=== PATIENT | female | born 1980 | race Caucasian/White ===

== ENCOUNTER 2016-12-28 17:57 | Emergency (ER) | payer BC, OTHER ==
[~2016-12-28] VITALS: Ht 162.6 cm; Wt 69.8 kg
[~2016-12-28 17:57] MED LIST: BSP5 PO; FLUO20CA35 PO; REVEIWED
[2016-12-28 18:03] VITALS: TEMP 36.9
[2016-12-28] MEDS ORDERED: ALPR1TAB3 PO (18:19)
[2016-12-28] MEDS ORDERED: CITA40TA12 PO (18:19)
[2016-12-28] MEDS ORDERED: TOPI25TA99 PO (18:19)
[2016-12-28] MEDS ORDERED: SODIUM CHLORIDE 0.9% 1000ML 1,000 ML IV STA (18:24)
[2016-12-28] MEDS ORDERED: ONDANSETRON INJ 2 MG/ML 2 ML VIAL IV STA (18:24)
[2016-12-28] MEDS ORDERED: OPTIRAY 320 IV PRN (18:30)
--- NOTE | 2016-12-28 18:34 | EMERGENCY ROOM VISIT NOTE ---
History Report prepared by Jeyson: Alejandro Saleem Under the Supervision of: Dr. Samm Zuniga D.O. First contact with patient: 18:15 Chief Complaint: WEAKNESS Stated Complaint: LOSS OF FEELING IN FACE AND ARM History of Present Illness The patient is a 36 year old female who presents to the Emergency Room with complaints of a resolved headache that occurred two days ago. She reports that her headache was in her forehead and eyes. The patient states that she woke up with her headache yesterday and her headache was persistent. She states that around 1030, she was sitting at her computer and felt "out of it". The patient reports that her right face became numb and her right arm felt weak. The patient reports that following these sensations, her headache disappeared. She admits that she has had headaches in the past but not to this extent. The patient also admits that her right eye feels heavy and she saw "black swirlies" today. She states that she saw Dr. Tierney at [facility] today and her blood pressure was 138 systolically. The patient states that she is worried because her blood pressure is normally 111 systolically, and her father has a history of hypertension and a stroke. She admits to a history of anxiety, which she takes Celexa for, and herniated degenerative discs, which causes her to have chronic lower back pain and left leg weakness. The patient reports that she smokes a pack a day and drinks two glasses a week. She denies any history of diabetes and a family history of any brain aneurysms. The patient denies neck pain, fevers, and weakness in legs. Source of History: patient Onset: two days ago Position: head, eye (right) Quality: ache Timing: resolved Associated Symptoms: + weakness, + numbness, No fevers, No neck pain Review of Systems See HPI for pertinent positives & negatives. A total of 10 systems reviewed and were otherwise negative. Past Medical & Surgical Medical Problems: (1) Anxiety (2) Herniated disc (3) OCD (obsessive compulsive disorder) Family History Cancer Diabetes mellitus Hypertension Kidney disease Kidney stones Social History Smoking Status: Current Every Day Smoker Alcohol Use: occasionally Marital Status: Housing Status: lives with family Occupation Status: employed Current/Historical Medications Scheduled Alprazolam (Xanax), 1 MG PO BID Citalopram Hydrobromide (Celexa), 40 MG PO QPM Topiramate (Topamax ), 75 MG PO DAILY Allergies Coded Allergies: Bupropion (Unverified Allergy, Intermediate, HIVES, 12/28/16) Physical Exam Vital Signs Date Time Temp Pulse Resp B/P (MAP) Pulse Ox O2 Delivery O2 Flow Rate FiO2 12/28/16 21:52 88 16 114/76 98 12/28/16 20:00 88 16 134/78 98 Room Air 12/28/16 19:00 98 Room Air 12/28/16 19:00 98 Room Air 12/28/16 18:03 36.9 99 20 145/102 98 Room Air Physical Exam GENERAL: Patient is awake, alert, and in no acute distress. Patient is resting comfortably and showing no signs of anxiety EYES: Mild ptosis of right eye. The pupils are equal, round, and reactive to light. Extra ocular motors are intact. EARS, NOSE, MOUTH AND THROAT: The nose is without any evidence of any deformity. Mucous membranes are moist tongue is midline NECK: The neck is nontender and supple. RESPIRATORY: Normal respiratory effort is noted there is no evidence of wheezing rhonchi or rales CARDIOVASCULAR: Regular rate and rhythm noted there no murmurs rubs or gallops normal S1 normal S2 GASTROINTESTINAL: The abdomen is soft. Bowel sounds are present in all quadrants. Abdomen is nontender MUSCULOSKELETAL/EXTREMITIES: There is no evidence of gross deformity full range of motion is noted in the hips and shoulders SKIN: There is no obvious evidence of any rash. There are no petechiae, pallor or cyanosis noted. NEUROLOGIC: Patient is awake alert and oriented x3 strength is symmetric patellar reflexes are 2+ bilaterally. Slight asymmetry with jalousies installer strength of upper extremities with left greater than right. Medical Decision & Procedures ER Provider Diagnostic Interpretation: Radiology results as stated below per my review and radiologist interpretation: ANGIOGRAPHY HEAD COMBO CLINICAL HISTORY: Right facial and right upper extremity loss of feeling. COMPARISON STUDY: No previous studies for comparison. TECHNIQUE: Unenhanced and arterial phase imaging of the head was performed. Injection of 94 cc of Optiray 320 IV was uneventful. Sagittal and coronal reconstructions were viewed as well as maximal intensity projections on an independent 3-D workstation. FINDINGS: No acute intracranial hemorrhage, midline shift or mass effect is present. Slight asymmetry in the lateral ventricles represents physiologic variation. The basilar cisterns are patent. There are no extra-axial collections. Estrada-white differentiation is maintained. There are no findings to suggest acute dural sinus thrombosis or acute territorial infarct. There are no significant calvarial abnormalities. Visualized portions of the sinuses and mastoid air cells are clear. The bilateral M1, M2, A1 and A2 segments are patent. The left vertebral artery is diminutive, likely on a congenital basis. There is persistence of the right posterior cerebral artery. No intracranial aneurysm or abrupt vessel cut off is identified. There is no significant stenosis within the major intracranial vessels. IMPRESSION: 1. No acute intracranial findings. 2. Unremarkable CTA of the head. Electronically signed by: Moisés Ochoa M.D. 12/28/2016 7:41 PM Dictated Date/Time: 12/28/2016 7:34 PM CHEST ONE VIEW PORTABLE CLINICAL HISTORY: Altered mental status. Weakness. COMPARISON STUDY: No previous studies for comparison. FINDINGS: Lung volumes are normal. No consolidation is identified. There is no pneumothorax or pleural effusion. Pulmonary vascularity is normal. Apparent hazy bibasilar opacities are likely artifactual. IMPRESSION: No acute cardiopulmonary findings. Electronically signed by: Moisés Ochoa M.D. 12/28/2016 6:43 PM Dictated Date/Time: 12/28/2016 6:42 PM MRI OF THE BRAIN WITHOUT CONTRAST CLINICAL HISTORY: Right facial numbness and right upper extremity weakness. COMPARISON STUDY: None. TECHNIQUE: Utilizing a 1.5 Shawanda magnet and dedicated coil, multiplanar, multiecho imaging of the brain was performed without IV contrast. FINDINGS: There are no areas of restricted diffusion. No acute intracranial hemorrhage, midline shift or mass effect is present. Ventricular system is unremarkable. Basilar cisterns are patent. There are no extra-axial collections. Flow-voids for the major intracranial vessels are present. There is no intracranial mass on this unenhanced exam. No areas of parenchymal signal abnormality are present. Calvarial signal is maintained. Orbits and sinuses are unremarkable. IMPRESSION: Unremarkable unenhanced MRI of the brain. Electronically signed by: Moisés Ochoa M.D. 12/28/2016 9:16 PM Dictated Date/Time: 12/28/2016 9:12 PM Laboratory Results 12/28/16 18:45 Red Blood Count 4.60, Mean Corpuscular Volume 89.8, Mean Corpuscular Hemoglobin 33.3, Mean Corpuscular Hemoglobin Concent 37.0, Mean Platelet Volume 9.6, Neutrophils (%) (Auto) 41.1, Lymphocytes (%) (Auto) 47.5, Monocytes (%) (Auto) 9.5, Eosinophils (%) (Auto) 1.3, Basophils (%) (Auto) 0.4, Neutrophils # (Auto) 1.85, Lymphocytes # (Auto) 2.14, Monocytes # (Auto) 0.43, Eosinophils # (Auto) 0.06, Basophils # (Auto) 0.02 12/28/16 18:45 Test 12/28/16 18:45 12/28/16 18:54 12/28/16 18:57 White Blood Count 4.51 K/uL (4.8-10.8) Red Blood Count 4.60 M/uL (4.2-5.4) Hemoglobin 15.3 g/dL (12.0-16.0) Hematocrit 41.3 % (37-47) Mean Corpuscular Volume 89.8 fL (80-100) Mean Corpuscular Hemoglobin 33.3 pg (25-34) Mean Corpuscular Hemoglobin Concent 37.0 g/dl (32-36) Platelet Count 203 K/uL (130-400) Mean Platelet Volume 9.6 fL (7.4-10.4) Neutrophils (%) (Auto) 41.1 % Lymphocytes (%) (Auto) 47.5 % Monocytes (%) (Auto) 9.5 % Eosinophils (%) (Auto) 1.3 % Basophils (%) (Auto) 0.4 % Neutrophils # (Auto) 1.85 K/uL (1.4-6.5) Lymphocytes # (Auto) 2.14 K/uL (1.2-3.4) Monocytes # (Auto) 0.43 K/uL (0.11-0.59) Eosinophils # (Auto) 0.06 K/uL (0-0.5) Basophils # (Auto) 0.02 K/uL (0-0.2) RDW Standard Deviation 42.6 fL (36.4-46.3) RDW Coefficient of Variation 13.1 % (11.5-14.5) Immature Granulocyte % (Auto) 0.2 % Immature Granulocyte # (Auto) 0.01 K/uL (0.00-0.02) Prothrombin Time 10.5 SECONDS (9.0-12.0) Prothromb Time International Ratio 1.0 (0.9-1.1) Activated Partial Thromboplast Time 26.8 SECONDS (21.0-31.0) Partial Thromboplastin Ratio 1.0 Est Creatinine Clear Calc Drug Dose 81.1 ml/min Estimated GFR () 92.8 Estimated GFR (Non- 80.1 BUN/Creatinine Ratio 13.2 (10-20) Calcium Level 9.1 mg/dl (8.5-10.1) Magnesium Level 2.2 mg/dl (1.8-2.4) Total Bilirubin 0.4 mg/dl (0.2-1) Direct Bilirubin < 0.1 mg/dl (0-0.2) Aspartate Amino Transf (AST/SGOT) 15 U/L (15-37) Alanine Aminotransferase (ALT/SGPT) 15 U/L (12-78) Alkaline Phosphatase 78 U/L (45-117) Troponin I < 0.015 ng/ml (0-0.045) Total Protein 8.4 gm/dl (6.4-8.2) Albumin 4.4 gm/dl (3.4-5.0) Thyroid Stimulating Hormone (TSH) 3.110 uIu/ml (0.300-4.500) Human Chorionic Gonadotropin, Qual NEG (NEG) Bedside Hemoglobin 15.3 g/dl (12.0-16.0) Bedside Hematocrit 45 % (37-47) Bedside Sodium 141 mEq/L (135-144) Bedside Potassium 3.4 mEq/L (3.3-5.0) Bedside Chloride 105 mEq/L (101-112) Bedside Total CO2 22 mEq/l (24-31) Anion Gap 18.0 mmol/L (16-25) Bedside Blood Urea Nitrogen 12 mg/dl (7-18) Bedside Creatinine 0.9 mg/dl (0.6-1.3) Bedside Glucose (other) 95 mg/dl (70-99) Bedside Ionized Calcium (Femi) 1.21 mmol/l (1.12-1.32) Urine Color YELLOW Urine Appearance CLEAR (CLEAR) Urine pH 6.0 (4.5-7.5) Urine Specific [place] 1.011 (1.000-1.030) Urine Protein NEG (NEG) Urine Glucose (UA) NEG (NEG) Urine Ketones NEG (NEG) Urine Occult Blood 3+ (NEG) Urine Nitrite NEG (NEG) Urine Bilirubin NEG (NEG) Urine Urobilinogen NEG (NEG) Urine Leukocyte Esterase NEG (NEG) Urine WBC (Auto) 1-5 /hpf (0-5) Urine RBC (Auto) >30 /hpf (0-4) Urine Hyaline Casts (Auto) 1-5 /lpf (0-5) Urine Epithelial Cells (Auto) 5-10 /lpf (0-5) Urine Bacteria (Auto) NEG (NEG) Laboratory results per my review. Medications Administered Medications (Trade) Dose Ordered Sig/Donnell Route Start Time Stop Time Status Last Admin Dose Admin Ondansetron HCl (Zofran Inj) 4 mg NOW STAT IV 12/28/16 18:24 12/28/16 18:26 DC 12/28/16 18:24 4 MG Sodium Chloride 1,000 ml @ 999 mls/hr Q1H1M STAT IV 12/28/16 18:24 12/28/16 19:24 DC 12/28/16 18:24 999 MLS/HR ECG Indication: weakness Rate (beats per minute): 68 Rhythm: normal sinus Findings: no ectopy, other (No acute ST segments) Comparison ECG Date: no prior available ED Course 1817: The patient was evaluated in room B11A. A complete history and physical examination were performed. 1823: Ordered Sodium Chloride 1000 ml @ 999 mls/hr IV, Zofran Injection 4 mg IV. 2008: I discussed the patient's case with Dr. Reed, [facility]. 2129: Upon reevaluation, the patient is resting comfortably. I discussed the results and treatment plan with her. The patient verbalized agreement of the treatment plan. She was discharged home. Medical Decision Prior records/ancillary studies reviewed and summarized above. Nursing notes reviewed. Additional history obtained from the patient. Differential diagnosis: Etiologies such as metabolic, infection, hypo/hyperglycemia, electrolyte abnormalities, cardiac sources, intracerebral event, toxicologic, neurologic, as well as others were entertained. The patient is a 36-year-old female who presented to the emergency department for an evaluation of right facial numbness urinalysis to the right eye as well as right upper extremity symptoms. The patient did not have any focal neurologic deficit in the lower extremities. Her jalousies installer was mildly asymmetric to my exam. I discussed the patient's laboratory radiographic studies with her. She does have a family history of intracranial aneurysms a CT angiography was obtained. The patient's case was discussed with the on-call neurologist. He recommended an MRI while the patient was in the emergency department. This did not show any acute abnormality. The patient was encouraged to follow-up with the primary care physician as well as the neurologist as soon as possible. She did have a slight headache on the onset of the symptoms and it is possible this represents some sort of atypical migraine but I did caution her to return to the emergency department immediately if symptoms change worsen or if the need arises. Medication Reconcilliation Current Medication List: was personally reviewed by me Blood Pressure Screening Patient's blood pressure: Elevated blood pressure Blood pressure disposition: Elevated BP felt to be situational Consults Time Called: 2008 Consulting Physician: [facility] Returned Call: 2008 I discussed the patient's case with [facility]. Impression Primary Impression: Headache Additional Impression: Right facial numbness Scribe Attestation The scribe's documentation has been prepared under my direction and personally reviewed by me in its entirety. I confirm that the note above accurately reflects all work, treatment, procedures, and medical decision making performed by me. Departure Information Dispostion Home / Self-Care Referrals Neil Sutton M.D. (PCP) Forms HOME CARE DOCUMENTATION FORM, IMPORTANT VISIT INFORMATION Patient Instructions Headache Pain, My [facility] Additional Instructions Rest and avoid any strenuous activity. Continue all medications as prescribed. Return to the emergency department immediately symptoms change worsen or need arises. Follow-up with your family doctor soon as possible for further evaluation. Problem Qualifiers
--- NOTE | 2016-12-28 18:45 | DIAGNOSTIC IMAGING REPORT ---
CHEST ONE VIEW PORTABLE CLINICAL HISTORY: Altered mental status. Weakness. COMPARISON STUDY: No previous studies for comparison. FINDINGS: Lung volumes are normal. No consolidation is identified. There is no pneumothorax or pleural effusion. Pulmonary vascularity is normal. Apparent hazy bibasilar opacities are likely artifactual. IMPRESSION: No acute cardiopulmonary findings. Electronically signed by: Moisés Ochoa M.D. 12/28/2016 6:43 PM Dictated Date/Time: 12/28/2016 6:42 PM
[2016-12-28 18:58] LABS: BASO % 0.4 %; BASO ABS # 0.02 K/uL (0-0.2); COMPLETE YES; EOS % 1.3 %; HEMATOCRIT 41.3 % (37-47); IG% 0.2 %; LYMPH % 47.5 %; LYMPH ABS # 2.14 K/uL (1.2-3.4); MEAN CELL VOLUME 89.8 fL (80-100); MEAN CORPUSCULAR HEMOGLOBIN 33.3 pg (25-34); MEAN PLATELET VOLUME 9.6 fL (7.4-10.4); MONO % 9.5 %; NEUT % 41.1 %; PLATELET COUNT 203 K/uL (130-400); WHITE BLOOD COUNT 4.51 K/uL (4.8-10.8)
[2016-12-28 19:00] VITALS: O2SAT 98; Ht 162.6 cm; Wt 69.8 kg
[2016-12-28 19:07] LABS: ISTAT CREATININE 0.9 mg/dl (0.6-1.3); ISTAT HEMOGLOBIN 15.3 g/dl (12.0-16.0); ISTAT IONIZED CALCIUM 1.21 mmol/l (1.12-1.32)
[2016-12-28 19:08] LABS: PROTHROMBIN TIME (PATIENT) 10.5 SECONDS (9.0-12.0)
[2016-12-28 19:17] LABS: ALT/SGPT 15 U/L (12-78); AST/SGOT 15 U/L (15-37); BLOOD UREA NITROGEN 12 mg/dl (7-18); BUN/CREATININE RATIO 13.2 (10-20); CALCIUM 9.1 mg/dl (8.5-10.1); CARBON DIOXIDE 24 mmol/L (21-32); CHLORIDE 109 mmol/L (98-107); CREATININE 0.92 mg/dl (0.60-1.20); GLUCOSE 94 mg/dl (70-99); MAGNESIUM 2.2 mg/dl (1.8-2.4); POTASSIUM 3.4 mmol/L (3.5-5.1); SODIUM 140 mmol/L (136-145)
[2016-12-28 19:24] LABS: PREG INTERNAL NEGATIVE QC NEG CLEAR BACKGROUND; PREG INTERNAL POSITIVE QC POS CONTROL LINE
[2016-12-28 19:28] LABS: ALKALINE PHOSPHATASE 78 U/L (45-117)
--- NOTE | 2016-12-28 19:42 | DIAGNOSTIC IMAGING REPORT ---
ANGIOGRAPHY HEAD COMBO CLINICAL HISTORY: Right facial and right upper extremity loss of feeling. COMPARISON STUDY: No previous studies for comparison. TECHNIQUE: Unenhanced and arterial phase imaging of the head was performed. Injection of 94 cc of Optiray 320 IV was uneventful. Sagittal and coronal reconstructions were viewed as well as maximal intensity projections on an independent 3-D workstation. FINDINGS: No acute intracranial hemorrhage, midline shift or mass effect is present. Slight asymmetry in the lateral ventricles represents physiologic variation. The basilar cisterns are patent. There are no extra-axial collections. Estrada-white differentiation is maintained. There are no findings to suggest acute dural sinus thrombosis or acute territorial infarct. There are no significant calvarial abnormalities. Visualized portions of the sinuses and mastoid air cells are clear. The bilateral M1, M2, A1 and A2 segments are patent. The left vertebral artery is diminutive, likely on a congenital basis. There is persistence of the right posterior cerebral artery. No intracranial aneurysm or abrupt vessel cut off is identified. There is no significant stenosis within the major intracranial vessels. IMPRESSION: 1. No acute intracranial findings. 2. Unremarkable CTA of the head. Electronically signed by: Moisés Ochoa M.D. 12/28/2016 7:41 PM Dictated Date/Time: 12/28/2016 7:34 PM
[2016-12-28 19:53] LABS: URINE APPEARANCE CLEAR (CLEAR); URINE BILIRUBIN NEG (NEG); URINE NITRITE NEG (NEG); URINE SPECIFIC GRAVITY 1.011 (1.000-1.030); UROBILINOGEN NEG (NEG)
[2016-12-28 19:54] LABS: URINE COLOR YELLOW
[2016-12-28 19:55] LABS: MANUAL MICROSCOPIC REQUIRED? NO; REVIEW REQ? NO
--- NOTE | 2016-12-28 21:18 | DIAGNOSTIC IMAGING REPORT ---
MRI OF THE BRAIN WITHOUT CONTRAST CLINICAL HISTORY: Right facial numbness and right upper extremity weakness. COMPARISON STUDY: None. TECHNIQUE: Utilizing a 1.5 Shawanda magnet and dedicated coil, multiplanar, multiecho imaging of the brain was performed without IV contrast. FINDINGS: There are no areas of restricted diffusion. No acute intracranial hemorrhage, midline shift or mass effect is present. Ventricular system is unremarkable. Basilar cisterns are patent. There are no extra-axial collections. Flow-voids for the major intracranial vessels are present. There is no intracranial mass on this unenhanced exam. No areas of parenchymal signal abnormality are present. Calvarial signal is maintained. Orbits and sinuses are unremarkable. IMPRESSION: Unremarkable unenhanced MRI of the brain. Electronically signed by: Moisés Ochoa M.D. 12/28/2016 9:16 PM Dictated Date/Time: 12/28/2016 9:12 PM
[2016-12-28 21:52] VITALS: BP 114/76; PULSE 88; O2SAT 98
== END 2016-12-28 21:52 | disposition home or self-care (01) ==
LOC: C.EDB 17:59
DX: R51 Headache (principal); R20.0 Anesthesia of skin; F41.9 Anxiety disorder, unspecified; M51.26 Other intervertebral disc displacement, lumbar region; G89.29 Other chronic pain; F42.9 Obsessive-compulsive disorder, unspecified; F17.200 Nicotine dependence, unspecified, uncomplicated; Z83.3 Family history of diabetes mellitus; Z82.49 Family history of ischemic heart disease and other diseases of the circulatory system; Z84.1 Family history of disorders of kidney and ureter

== ENCOUNTER → 2017-01-05 | Outpatient (CLI) | payer BC ==
[~2017-01-05] MED LIST changes: +ALPR1TAB3 PO; -BSP5 PO; +CITA40TA12 PO; -FLUO20CA35 PO; -REVEIWED; +TOPI25TA99 PO
--- NOTE | 2017-01-05 08:48 | DIAGNOSTIC IMAGING REPORT ---
MRI OF THE BRAIN WITHOUT IV CONTRAST CLINICAL HISTORY: Right-sided facial droop. Right-sided weakness. COMPARISON STUDY: CT and MRI of the brain dated 12/28/2016. TECHNIQUE: MRI of the brain was performed utilizing various T1 and T2-weighted sequences in the axial, sagittal, and coronal planes. IV contrast was not administered for this examination. FINDINGS: Brain parenchyma: The brain parenchyma is normal in appearance. There is no hemorrhage or mass effect. There is no restricted diffusion to suggest acute ischemia. Estrada-white matter differentiation is preserved. No extra-axial fluid collection is seen. The cerebellar tonsils are normal in configuration. Ventricles, sulci, and cisterns: Normal in configuration. Pituitary and sella: Unremarkable. Intracranial vasculature: Normal flow voids are maintained at the skull base. Orbits: The bony orbits are grossly intact. Orbital contents are normal in appearance. Sinuses and mastoids: Clear. Calvarium: Unremarkable. Cervical cord: Partially visualized cervical spinal cord is normal in morphology and signal intensity. IMPRESSION: No acute intracranial abnormality. No significant change studies performed 1 week ago. Electronically signed by: Janusz Michael M.D. 01/05/2017 8:46 AM Dictated Date/Time: 01/05/2017 8:41 AM
== END ==
LOC: C.MRIBC 07:50
PROVIDERS: ATTEND Nurse Practitioner Adult Health
DX: I63.9 Cerebral infarction, unspecified (principal)